=== PATIENT | female | born 1950 | race Caucasian/White ===

== ENCOUNTER 2016-11-08 05:08 | Inpatient (IN) ==
--- NOTE | 2016-10-18 12:07 | EKG Report ---
Stationary ECG Study [facility] Test Date: 10/18/2016 12:07:38 PM Pat Name: JIE KAY Department: Room: Gender: F Freight Adjuster: RONY JIMENEZ : 1950 Requested by: Aram Mcginnis Order Number: [id number] Reading MD: KELSEY PORTER Intervals [place] Rate: 49 P: 73 NC: 140 QRS: 50 QRSD: 94 T: 27 QT: 413 QTc: 382 Interpretive Statements SINUS BRADYCARDIA LOW QRS VOLTAGE IN PRECORDIAL LEADS Electronically Signed On 10-19-16 12:50:17 CDT by KELSEY PORTER [email or web address]
--- NOTE | 2016-10-18 12:32 | XRay Report ---
Exam: XR chest 2V Date: 10/18/2016 11:52 AM Indication: Respiratory preop evaluation of the chest. Comparison: None Technical: PA lateral Findings: Mild compound scoliosis. Prior cholecystectomy clips are present. Minimal scarring in the perihilar regions. The bony structures reveal no acute findings. Ossification of costochondral cartilages are present. The heart is normal in size. No pneumothorax. Impression: 1. Underlying mild scarring in the perihilar regions without acute cardiomegaly pathology 2. Prior cholecystectomy 3. Mild scoliosis and degenerative spondylosis thoracic spine PROCEDURE INTERPRETED AT [facility] DEPARTMENT OF RADIOLOGY Final Report Signed by: Dr. Bacilio Garza
[2016-11-02 14:20] LABS: Basophils % 0.8 % (0.0-0.8); Eosinophils # 0.2 10*3/uL (0.0-0.87); Hematocrit 38.5 VOL% (35.7-47.0); Hemoglobin 12.9 GM/DL (12.0-16.0); Immature Granulocytes % 0.2 %; Immature Granulocytes Absolute 0.01 #; Lymphocytes # 1.8 10*3/uL (1.4-4.0); Mean Corpuscular HGB Conc 33.5 GM/DL (32-36); Mean Corpuscular Hemoglobin 31 PG (27-34); Mean Corpuscular Volume 92.8 FL (87-102); Mean Platelet Volume 9.2 FL (9.6-12.0); Monocytes # 0.4 10*3/uL (0.11-0.8); Monocytes % 8.5 % (1.7-12.7); Neutrophils # 2.7 10*3/uL (1.4-7.4); Neutrophils % 51.5 % (38.7-73.9); Platelet Count 238 T/CUMM (130-400); Red Blood Count 4.15 MC/CUMM (3.8-5.5); Red Cell Distribution Width 12.3 % (9.3-17.3); White Blood Count 5.2 T/CUMM (4-12)
[2016-11-02 14:24] LABS: Apearance,Urine CLEAR (Clear); Bilirubin,Urine Negative (Negative); Blood, Urine Negative (Negative); Glucose,Urine (UA) Negative (Negative); Hyaline Casts,Urine 1 /LPF (0-3); Ketones,Urine Negative (Negative); Mucus,Urine Occasional /LPF (Occasional); Nitrite,Urine Negative (Negative); Protein,Urine Negative; RBC,Urine <1 /HPF (0-4); Squamous Epithelial Cell,Urine Occasional /HPF (0-10); Urine Color Yellow (Yellow); Urine Specific Gravity 1.005 (1.001-1.035); Urine Urobilinogen < 2.0 EU/DL (0.2-1.0); WBC,Urine 1 /HPF (0-6)
[2016-11-02 14:32] LABS: PT Patient Result 10.5 SECS; Partial Thromboplastin Time 28.9 SECS (0-40)
[2016-11-02 14:49] LABS: Albumin 3.8 G/DL (3.4-5.0); Bilirubin,Total 0.8 MG/DL (0.2-1.0); Calcium 9.1 MG/DL (8.5-10.1); Potassium 3.7 MMOL/L (3.5-5.1); Total Protein 6.9 G/DL (6.4-8.3)
[2016-11-08] MEDS ORDERED: SODIUM CHLORIDE 0.9% 100 ML IV ONE (06:20)
[2016-11-08] MEDS ORDERED: VANCOMYCIN 1,000 MG VIAL ONE (06:20)
[2016-11-08] MEDS ORDERED: ceFAZolin 1,000 MG VIAL ONE (06:20)
[2016-11-08] MEDS ORDERED: VANCOMYCIN INJ 1,000 MG in SODIUM CHLORIDE 0.9% 250 ML IV ONE ×2 (06:30→18:30)
--- NOTE | 2016-11-08 06:39 | History and Physical Update ---
History and Physical Update - History and Physical H&P was reviewed, the patient examined and there: are no changes in the patients condition since last H&P was completed.
[2016-11-08] MEDS ORDERED: LACTATED RINGERS 1,000 ML IV SCH (07:00)
[2016-11-08] MEDS ORDERED: TRANEXAMIC ACID 1,000 MG/10 ML VIAL IV ONE (07:36)
[2016-11-08] MEDS ORDERED: ROPIVACAINE 0.5% 30 ML VIAL ONE (08:10)
[2016-11-08] MEDS ORDERED: BACITRACIN OINT 0.9 GM PACK TOP ONE (09:16)
[2016-11-08] MEDS ORDERED: MAGNESIUM HYDROXIDE SUSP 30 ML UDCUP PO PRN (09:40)
[2016-11-08] MEDS ORDERED: oxyCODONE IR 5 MG TABLET PO PRN (09:40)
[2016-11-08] MEDS ORDERED: MORPHINE 2 MG/1 ML SYRINGE IV PRN ×2 (09:40)
[2016-11-08] MEDS ORDERED: diphenhydrAMINE CAP 25 MG CAPSULE PO PRN (09:40)
--- NOTE | 2016-11-08 09:43 | Operative Note ---
Date of procedure: 11/08/16 Procedure: DIAGNOSIS: Left knee primary osteoarthrosis PROCEDURE: Left total knee arthroplasty (cpt #87452) SURGEON: Racquel ANESTHESIA: Spinal with a postoperative adductor canal block PROCEDURE and FINDINGS: After adequate was induced, the patient's knee was prepped and draped in the usual sterile fashion. The limb was exsanguinated with Esmarch. Tourniquet was inflated to 300 mmHg. A median parapatellar approach was made. Femur was cut using an intramedullary guide and a 4 in 1 cutting jig in 5 degrees of valgus. ACL and menisci were excised. Tibia was cut using intramedullary guide. Patella was cut using freehand technique. Components were trialed. Tibial fin was prepared. Components are cemented in place using Palacos cement and modern cementing techniques. Cement was removed. A 1/8 inch Hemovac drain was placed. The knee was well-balanced and full range of motion with central tracking patella. Deep layers closed with 0-0 Vicryl. Superficial layers were closed with 2-0 and 3-0 Vicryl. Skin was approximated with maribell. Bacitracin and a sterile dressing was applied. Patient was transferred to recovery. A postoperative adductor canal block is anticipated. COMPONENTS: The [employer] Persona system was used. 7 CR narrow femur, D natural tibia, 10 mm liner, 32 mm patella TOURNIQUET TIME: 51 minutes Surgeon / Physician: Aram Clement Jr. Results - Labs CBC & BMP: 11/02/16 14:11 11/02/16 14:11 Discharge Plan - Discharge Medications No Action Omeprazole [Prilosec] 20 mg PO DAILY NIFEdipine XL TAB [Procardia Xl] 30 mg PO DAILY Levothyroxine Tab [Synthroid Tab] 137 mcg PO DAILY@0700 Tramadol HCl [Tramadol Tab] 50 mg PO DAILY PRN PRN Reason: Pain hydroCHLOROthiazide [Hydrochlorothiazide] 12.5 mg PO DAILY Diclofenac Sodium Tab [Voltaren] 75 mg PO DIRECTED [place] Xl 2 tablet PO DAILY Modere 3 tablet PO DAILY - Follow Up or Referral - Forms/Instructions
[2016-11-08] MEDS ORDERED: PROPOFOL 200 MG/20 ML VIAL IV ONE (09:59)
[2016-11-08] MEDS ORDERED: MIDAZOLAM 2 MG/2 ML VIAL ONE (09:59)
[2016-11-08] MEDS ORDERED: SODIUM CHLORIDE 0.9% 250 ML IV ONE (10:00)
[2016-11-08] MEDS ORDERED: KETAMINE 500 MG/10 ML VIAL ONE (10:00)
[2016-11-08] MEDS: LACTATED RINGERS 1,000 ML IV SCH (10:00)
--- NOTE | 2016-11-08 10:27 | XRay Report ---
XR knee 2V LT Indication: Joint replacement (left knee) Comparison: None Technique: Frontal and lateral views of the left knee Findings: Status post total left knee arthroplasty. No evidence of immediate hardware failure. Superficial skin maribell and surgical drain/s overlie the knee. Subcutaneous and joint space air noted which is likely postoperative. IMPRESSION: Status post total left knee arthroplasty. PROCEDURE INTERPRETED AT [facility] DEPARTMENT OF RADIOLOGY Final Report Signed by: Dr Quang Donovan
[2016-11-08] MEDS: KETOROLAC 30 MG/1 ML VIAL IV SCH ×3 (11:29→21:46)
[2016-11-08] MEDS: ACETAMINOPHEN 500 MG TABLET PO SCH ×2 (14:00→19:39)
--- NOTE | 2016-11-08 17:23 | Orthopedic Progress Note ---
Orthopedics - Subjective Interval history: comfortable. Sitting in a chair comfortably. Neurovascularly intact. Dressing clean, dry and intact. Plan: Continue physical therapy. Exam - Constitutional Vitals: Period Temp Pulse Resp BP Sys/Lilly Pulse Ox Last 24 Hr 97.4 F-98.5 F 59-75 16-20 112-141/56-77 96-100 Results - Labs CBC & BMP: 11/02/16 14:11 11/02/16 14:11
[2016-11-08] MEDS: oxyCODONE IR 5 MG TABLET PO PRN (19:39)
[2016-11-08] MEDS: DOCUSATE SODIUM 100 MG CAPSULE PO SCH (21:46)
[2016-11-09] MEDS: ACETAMINOPHEN 500 MG TABLET PO SCH ×2 (00:59→07:11)
[2016-11-09] MEDS: LACTATED RINGERS 1,000 ML IV SCH (00:59)
[2016-11-09] MEDS: KETOROLAC 30 MG/1 ML VIAL IV SCH (03:31)
[2016-11-09] MEDS ORDERED: FONDAPARINUX 2.5 MG/0.5 ML SYRINGE SUBCUT SCH (03:41)
[2016-11-09 05:35] LABS: Basophils % 0.3 % (0.0-0.8); Eosinophils # 0.2 10*3/uL (0.0-0.87); Eosinophils % 3.3 % (0.00-10.9); Hematocrit 28.9 VOL% (35.7-47.0); Hemoglobin 9.7 GM/DL (12.0-16.0); Immature Granulocytes % 0.5 %; Immature Granulocytes Absolute 0.03 #; Lymphocytes # 1.9 10*3/uL (1.4-4.0); Lymphocytes % 29.2 % (21.3-54.2); Mean Corpuscular HGB Conc 33.6 GM/DL (32-36); Mean Corpuscular Hemoglobin 31 PG (27-34); Mean Corpuscular Volume 93.2 FL (87-102); Mean Platelet Volume 9.7 FL (9.6-12.0); Monocytes # 0.8 10*3/uL (0.11-0.8); Monocytes % 12.4 % (1.7-12.7); Neutrophils # 3.5 10*3/uL (1.4-7.4); Neutrophils % 54.3 % (38.7-73.9); Platelet Count 189 T/CUMM (130-400); Red Cell Distribution Width 12.4 % (9.3-17.3); White Blood Count 6.4 T/CUMM (4-12)
[2016-11-09 06:00] LABS: Calcium 7.9 MG/DL (8.5-10.1); Osmolality,Calculated 283.8 MOS/KG (273-304); Potassium 3.6 MMOL/L (3.5-5.1)
[2016-11-09] MEDS ORDERED: LEVOTHYROXINE 137 MCG TABLET PO SCH (07:00)
[2016-11-09] MEDS: oxyCODONE IR 5 MG TABLET PO PRN (07:11)
[2016-11-09] MEDS: DOCUSATE SODIUM 100 MG CAPSULE PO SCH (08:34)
[2016-11-09] MEDS ORDERED: [UNRECOGNIZED DRUG - OTHER] PO SCH (09:00)
[2016-11-09] MEDS ORDERED: PANTOPRAZOLE 40 MG TABLET PO SCH (09:00)
[2016-11-09] MEDS ORDERED: OMEGA PO SCH (09:00)
[2016-11-09] MEDS ORDERED: hydroCHLOROthiazide 12.5 MG CAPSULE PO SCH (09:00)
--- NOTE | 2016-11-09 09:19 | Orthopedic Progress Note ---
Orthopedics - Subjective Interval history: Ms. Hinds is comfortable this morning. She can perform a straight leg raise. Active range of motion is from 0-60. Dressing is clean, dry and intact. She is neurovascularly unchanged. Plan: Continue per protocol. If she passes physical therapy, she can be discharged later today. Exam - Constitutional Vitals: Period Temp Pulse Resp BP Sys/Lilly Pulse Ox Last 24 Hr 97.4 F-99.3 F 52-81 16-20 96-141/56-80 95-100 Results - Labs CBC & BMP: 11/09/16 04:28 11/09/16 04:28 Specialty Discharge - Follow Up or Referrals Follow up with: Aram Clement Jr., MD [Physician] -
--- NOTE | 2016-11-09 09:22 | Discharge Summary ---
Hospital Course - Hospital Course Hospital Course: Ms. Hinds was admitted after undergoing an uncomplicated left total knee arthroplasty. She received perioperative DVT and antimicrobial prophylaxis. She received physical therapy. She was discharged home in stable condition. She is to receive outpatient physical therapy. Discharge instructions were reviewed. Specialty Discharge - Follow Up or Referrals Follow up with: Aram Clement Jr., MD [Physician] - 11/21/16 1:00 pm Discharge Plan - Discharge Data Disposition: Disch To Home/Self Care Discharge Diet: advance to your usual diet Activity: resume usual activities as tolerated Hygiene: may shower Weight Bearing at Discharge: weight bear as tolerated Driving: not until seen by doctor - Discharge Medications Continue Omeprazole [Prilosec] 20 mg PO DAILY NIFEdipine XL TAB [Procardia Xl] 30 mg PO DAILY Levothyroxine Tab [Synthroid Tab] 137 mcg PO DAILY@0700 hydroCHLOROthiazide [Hydrochlorothiazide] 12.5 mg PO DAILY Diclofenac Sodium Tab [Voltaren] 75 mg PO BID [place] Xl 2 tablet PO DAILY Modere 3 tablet PO DAILY Discontinued Tramadol HCl [Tramadol Tab] 50 mg PO Q6H PRN PRN Reason: Pain - Follow Up or Referral Follow Up: Aram Clement Jr., MD [Physician] - 11/21/16 1:00 pm - Forms/Instructions Instructions: Total Knee Replacement (DC) Additional Discharge Instructions: Daily dry dressing changes. Weightbearing as tolerated. CPM for 3 weeks. Wear GIANNI hose for 1 month. Follow-up appointment in 10-14 days. Prescription for [place] 7.5 was written. Take aspirin 325 mg by mouth daily for 21 days. Set up outpatient physical therapy in [place]. Exam - Constitutional Vitals: Period Temp Pulse Resp BP Sys/Lilly Pulse Ox Last 24 Hr 97.4 F-99.3 F 52-81 16-20 96-141/56-80 95-100 Discharge Results Procedures and tests throughout hospitalization: Pending Orders 11/10/16 04:00 Comp Blood Count Auto Diff IN AM 11/11/16 04:00 Comp Blood Count Auto Diff IN AM Labs on day of discharge: Labs from last 24 hours 11/09/16 11/09/16 04:28 04:28 WBC 6.4 RBC 3.10 L Hgb 9.7 L Hct 28.9 L MCV 93.2 MCH 31 MCHC 33.6 RDW 12.4 Plt Count 189 MPV 9.7 Neut % (Auto) 54.3 Lymph % (Auto) 29.2 [place] % (Auto) 12.4 Eos % (Auto) 3.3 Baso % (Auto) 0.3 Neut # (Auto) 3.5 Lymph # (Auto) 1.9 [place] # (Auto) 0.8 Eos # (Auto) 0.2 Baso # (Auto) 0.0 Immature Gran % 0.5 Nucleated RBC % 0.0 Immature Gran # 0.03 Nucleated RBCs # 0.00 Immature Plt Fraction 0.0 Sodium 144 Potassium 3.6 Chloride 109 H Carbon Dioxide 29 Anion Gap 9.6 BUN 7 Creatinine 0.60 GFR Calculation 93 BUN/Creatinine Ratio 11.00 Glucose 90 Calculated Osmolality 283.8 Calcium 7.9 L DS: Provider Date of admission: 11/08/16 05:08 Primary care physician: Gerardo Smith Attending physician on admission: Aram Clement Jr., Consults: 11/08/16 09:40 Consult to Case Mgmt/Social Srvs [CONS] Routine Reason for Case Mgmt/Social Srvs: Rehab Home Health Equipment Consult Comment: Bedside Commode, CPM machine del to rm 321 before D/C home; 4ft 11in 159lbs Consult to Occupational Therapy [CONS] Routine Reason for Occupational Therapy: Evaluate and Treat Consult Comment: ADL's Consult to Physical Therapy [CONS] Routine Reason for Physical Therapy: Evaluate and Treat Gait Training Start Therapy: Today 11/08/16 11:52 Consult to Pastoral Services [CONS] Routine Comment: Pastoral Screen: Request Potato Chip Maker Visit Pastoral Screen Source of Request: Patient 11/08/16 17:25 Consult to Physical Therapy [CONS] Routine Reason for Physical Therapy: Other Consult Comment: Deliver Standard Walker to Pt's room 321 before D/C home; f/ home PT Discharging clinician: Aram Clement Jr., Expected date of discharge: 11/09/16
[2016-11-09] MEDS ORDERED: CELECOXIB 200 MG CAPSULE PO SCH (10:00)
--- NOTE | 2016-11-09 14:18 | Pathology Report from [facility] ---
[facility] [place] # : [id number] PATIENT NAME : Jie Hinds ORDERING DR : MOLLY JIMENEZ MD CLINICAL HX: Left knee osteoarthritis POST-OP DX: Same SPECIMEN INFO: Left knee bone and soft tissue GROSS DESCRIPTION: The specimen is received in formalin labeled with the patients name and consists of an aggregate of bone, soft tissue and cartilage measuring 14.0 x 5.5 cm. The articular surfaces are focally degenerative with areas of subchondral eburnation seen. [employer] tissue submitted in one cassette. DIAGNOSIS FOR JIE HINDS: LEFT KNEE BONE AND TISSUE: Fibrocartilaginous material with dystrophic calcification and mild chronic inflammation. COLLECTED DATE: 11/08/2016 [facility] [place] DATE: 11/09/2016 ELECTRONICALLY SIGNED BY: Analilia Sofia III, M.D. 11/09/2016 - 9:08:11 MONA
[2016-11-09 17:04] VITALS: BP 125/71
== END 2016-11-09 16:30 | disposition home or self-care (01) | DRG 470 ==
LOC: N.SDSINP 05:08 → N.3E 10:49
PROVIDERS: ADMIT Orthopaedic Surgery; ATTEND Orthopaedic Surgery